=== PATIENT | male | born 1940 | race American Indian/Alaskan Native ===

== ENCOUNTER 2021-05-13 19:36 | Emergency (ER) | payer MEDICARE ==
--- NOTE | 2021-05-13 21:52 | XRay Report ---
ABDOMEN 2 VIEW(S) INDICATION / CLINICAL INFORMATION: abd pain w/nausea and tightness to abd. COMPARISON: None available. FINDINGS: TUBES / LINES: None. BOWEL GAS PATTERN: Large colonic stool burden most likely representing constipation. Nonobstructive b owel gas pattern. FREE AIR / EXTRALUMINAL GAS: None seen. ADDITIONAL FINDINGS: No significant additional findings. IMPRESSION: 1. Bowel findings as above. Signer Name: Abdirizak Aldana MD Signed: 05/13/2021 9:47 PM Workstation Name: [id number]
--- NOTE | 2021-05-13 23:09 | Emergency Department Report ---
ED General Adult HPI - General Chief complaint: Abdominal Pain Stated complaint: CONSTIPATION Time Seen by Provider: 05/13/21 22:54 Source: patient Mode of arrival: Ambulatory Limitations: No Limitations - History of Present Illness Initial comments: This is a 81-year-old male with hx of prostate CA,and chronic constipation. who presents for constipation states constipation is worsening. Patient has history of chronic constipation. Patient denies fever no chills no nausea no vomiting. Patient is tolerating p.o. intake. Last bowel movement 4 hours ago. Patient states frequently using self digital stimulation and laxatives. Denies abdominal pain at this time. Patient is followed by gastroenterology. Last colonoscopy and endoscopy 3 months ago. Patient has follow-up with GI in 2 weeks. Patient denies chest pain. There is no diaphoresis. No shortness of breath. Patient denies other symptoms at this time.. - Related Data Previous Rx's Medication Instructions Recorded Last Taken Type bisacodyL [Dulcolax suppos] 10 mg RI QDAY PRN #7 supp.rect 05/13/21 Unknown Rx polyethylene glycoL 3350 [Miralax 17 gm PO BID PRN #14 packet 05/13/21 Unknown Rx 3350] Allergies Allergy/AdvReac Type Severity Reaction Status Date / Time No Known Allergies Allergy Unverified 05/13/21 21:22 ED Review of Systems ROS: Stated complaint: CONSTIPATION Other details as noted in HPI Constitutional: denies: chills, fever Eyes: denies: eye pain, eye discharge, vision change ENT: denies: ear pain, throat pain Respiratory: denies: cough, shortness of breath, wheezing Cardiovascular: as per HPI Endocrine: no symptoms reported Gastrointestinal: constipation. denies: nausea, vomiting, diarrhea, hematemesis, melena Genitourinary: denies: urgency, dysuria Musculoskeletal: denies: back pain, joint swelling, arthralgia Skin: denies: rash, lesions Neurological: denies: headache, weakness, paresthesias Psychiatric: denies: anxiety, depression Hematological/Lymphatic: denies: easy bleeding, easy bruising ED Past Medical Hx - Past Medical History Previous Medical History?: No - Surgical History Past Surgical History?: No - Social History Smoking Status: Never Smoker Substance Use Type: None - Medications Home Medications: Home Medications Medication Instructions Recorded Confirmed Last Taken Type bisacodyL [Dulcolax suppos] 10 mg RI QDAY PRN #7 supp.rect 05/13/21 Unknown Rx polyethylene glycoL 3350 [Miralax 17 gm PO BID PRN #14 packet 05/13/21 Unknown Rx 3350] ED Physical Exam - General Limitations: No Limitations General appearance: alert, in no apparent distress - Head Head exam: Present: atraumatic, normocephalic - Eye Eye exam: Present: normal appearance, EOMI Pupils: Present: normal accommodation - ENT ENT exam: Present: mucous membranes moist - Neck Neck exam: Present: normal inspection, full ROM. Absent: tenderness - Respiratory Respiratory exam: Present: normal lung sounds bilaterally. Absent: respiratory distress, wheezes - Cardiovascular Cardiovascular Exam: Present: regular rate, normal rhythm, normal heart sounds. Absent: systolic murmur, diastolic murmur, rubs, gallop - GI/Abdominal GI/Abdominal exam: Present: soft, normal bowel sounds. Absent: distended, tenderness, guarding, rebound, rigid, bruit, hernia - Expanded GI/Abdominal Exam Expanded GI/Abdominal exam: Absent: psoas sign, obturator sign, heel tap sign, Bobby's sign, Rovsing's sign, tenderness at Mcburney's Point, ascites - Rectal Rectal exam: Present: deferred - Extremities Exam Extremities exam: Present: normal inspection, full ROM. Absent: tenderness - Back Exam Back exam: Present: normal inspection, full ROM. Absent: CVA tenderness (R), CVA tenderness (L) - Neurological Exam Neurological exam: Present: alert, oriented X3, CN II-XII intact, normal gait - Expanded Neurological Exam Expanded Patient oriented to: Present: person, place, time Best Eye Response (Yovani): (4) open spontaneously Best Motor Response (Yovani): (6) obeys commands Best Verbal Response (Yovani): (5) oriented Vale Total: 15 - Psychiatric Psychiatric exam: Present: normal affect, normal mood - Skin Skin exam: Present: warm, dry, intact, normal color. Absent: rash ED Medical Decision Making - Radiology Data Radiology results: report reviewed, image reviewed Ordering Physician: MAYDA ARORA MD Date of Service: 05/13/21 Procedure(s): XR abdomen 2V Accession Number(s): [id number] cc: MAYDA ARORA MD Fluoro Time In Minutes: ABDOMEN 2 VIEW(S) INDICATION / CLINICAL INFORMATION: abd pain w/nausea and tightness to abd. COMPARISON: None available. FINDINGS: TUBES / LINES: None. BOWEL GAS PATTERN: Large colonic stool burden most likely representing constipation. Nonobstructive bowel gas pattern. FREE AIR / EXTRALUMINAL GAS: None seen. ADDITIONAL FINDINGS: No significant additional findings. IMPRESSION: 1. Bowel findings as above. Signer Name: Abdirizak Aldana MD Signed: 05/13/2021 9:47 PM Workstation Name: [id number] Transcribed By: IRVING Dictated By: Abdirizak Aldana MD Electronically Authenticated By: Abdirizak Aldana MD Signed Date/Time: 05/13/212146 DD/ 45 TD/TT: - Medical Decision Making Patient is conurrently tolerating p.o. intake without nausea vomiting. No melena. No diarrhea. Pt denies abdominal pain at this time there is been no fever or chills. This is constipation, plan treat with MiraLAX, Dulcolax, hydrate as directed, follow-up with GI as scheduled. Patient will return to emergency should symptoms worsen. Patient verbalized agreement and understanding with discharge plan. Patient DC'd home in stable condition at this time. Critical care attestation.: If time is entered above; I have spent that time in minutes in the direct care of this critically ill patient, excluding procedure time. ED Disposition Clinical Impression: Constipation Qualifiers: Constipation type: unspecified constipation type Qualified Code(s): K59.00 - Constipation, unspecified Disposition: DC-01 TO HOME OR SELFCARE Is pt being admited?: No Does the pt Need Aspirin: No Condition: Stable Instructions: Constipation, Adult, [id number], Probiotics Additional Instructions: Take medications as prescribed. Hydrate as directed. Follow-up with gastroenterology Dr. Collado, as scheduled. Return to emergency should symptoms worsen. Prescriptions: bisacodyL [Dulcolax suppos] 10 mg RI QDAY PRN #7 supp.rect PRN Reason: Constipation polyethylene glycoL 3350 [Miralax 3350] 17 gm PO BID PRN #14 packet PRN Reason: Constipation Referrals: [facility] [Provider Group] - 3-5 Days Time of Disposition: 23:53
[2021-05-14 00:18] VITALS: BP 149/85
== END 2021-05-13 23:30 | disposition home or self-care (01) ==
LOC: ED 19:36
DX: K59.00 Constipation, unspecified (principal)
CPT/HCPCS: 74019; 99283